=== PATIENT | female | born 2000 | race American Indian/Alaskan Native ===

== ENCOUNTER 2021-05-27 15:56 | Emergency (ER) | payer MEDICAID ==
[2021-05-27 16:05] VITALS: BP 128/68
[2021-05-27] MEDS ORDERED: ACETAMINOPHEN 500 MG TAB PO ONE (22:48)
[2021-05-27] MEDS ORDERED: IBUPROFEN 600 MG TAB PO ONE (22:48)
[2021-05-27 23:22] LABS: Basophils # (Auto) 0.1 K/mm3 (0.0-0.1); Eosinophils # (Auto) 0.2 K/mm3 (0.0-0.4); Eosinophils % (Auto) 1.8 % (0.0-4.3); Monocytes # (Auto) 0.7 K/mm3 (0.0-0.8); Monocytes % (Auto) 6.9 % (0.0-7.3)
[2021-05-27 23:45] LABS: Alanine Aminotransferase 15 units/L (7-56); Albumin 4.2 g/dL (3.9-5); Blood Urea Nitrogen 9 mg/dL (7-17); Calcium 9.7 mg/dL (8.4-10.2); Hemolysis Index 2
[2021-05-27 23:52] LABS: BUN/Creatinine Ratio 15
[2021-05-28 00:05] LABS: Basophils % (Auto) 0.3 % (0.0-1.8); Hematocrit 33.3 % (30.3-42.9); Hemoglobin 10.3 gm/dl (10.1-14.3); Lymphocytes # (Auto) 2.4 K/mm3 (1.2-5.4); Lymphocytes % (Auto) 25.5 % (13.4-35.0); Mean Corpuscular HGB Conc 31 % (30-34); Mean Corpuscular Volume 70 fl (79-97); Platelet Count 431 K/mm3 (140-440); Red Blood Count 4.73 M/mm3 (3.65-5.03)
[2021-05-28 00:06] LABS: Red Cell Distribution Width 20.9 % (13.2-15.2)
[2021-05-28 01:32] LABS: Bilirubin,Urine NEG (Negative); Blood,Urine LG (Negative); Color,Urine Yellow (Yellow); Mucus,Urine 1+ /HPF
--- NOTE | 2021-05-28 01:43 | Emergency Department Report ---
ED Female HPI - General Chief complaint: Vaginal Bleeding Stated complaint: ABD PAIN/ABNORMAL CYCLE Source: patient, EMS Mode of arrival: Stretcher Limitations: No Limitations - History of Present Illness Initial comments: Patient is a nulliparous 20-year-old -[place] female with a history of morbid obesity presents to the ED with persistent heavy vaginal bleeding for the last 2 weeks after finishing her menstrual cycle. Patient also complains of severe pelvic pain intermittently for the last 7 days. Patient denies dysuria, urinary frequency and urgency, chest pain, shortness of breath, fever, chills, cough, sore throat, nausea and vomiting or diarrhea or dyspareunia. MD Complaint: vaginal bleeding, pelvic pain -: Sudden, week(s) (1) Location: suprapubic, other Radiation: non-radiating (Vaginal) Severity: severe Severity scale (0 -10): 8 Quality: cramping, sharp, aching Consistency: constant Improves with: none Worsens with: menstrual period Are you Now?: No Last Menstrual Period: 05/21/21 EDC: 02/25/22 Associated Symptoms: denies other symptoms, vaginal bleeding. denies: abdominal pain, nausea/vomiting, fever/chills, headaches, loss of appetite, hematuria, seizure, shortness of breath, syncope, weakness - Related Data Sexually active: No : 0 Para: 0 A: 0 Previous Rx's Medication Instructions Recorded Last Taken Type Ibuprofen [Motrin 800 MG tab] 800 mg PO Q8HR PRN #30 tablet 05/28/21 Unknown Rx medroxyPROGESTERone ACETATE 10 mg PO QDAY #10 tab 05/28/21 Unknown Rx [Provera] Allergies Allergy/AdvReac Type Severity Reaction Status Date / Time No Known Allergies Allergy Verified 05/27/21 23:04 ED Review of Systems ROS: Stated complaint: ABD PAIN/ABNORMAL CYCLE Other details as noted in HPI Constitutional: denies: chills, fever Eyes: denies: eye pain, eye discharge, vision change ENT: denies: ear pain, throat pain Respiratory: denies: cough, shortness of breath, wheezing Cardiovascular: denies: chest pain, palpitations Endocrine: no symptoms reported Gastrointestinal: abdominal pain (Suprapubic pain). denies: nausea, vomiting, diarrhea Genitourinary: abnormal menses (Heavy vaginal bleeding). denies: urgency, dysuria, frequency, hematuria, discharge, dyspareunia Musculoskeletal: denies: back pain, joint swelling, arthralgia Skin: denies: rash, lesions Neurological: denies: headache, weakness, paresthesias Psychiatric: denies: anxiety, depression Hematological/Lymphatic: denies: easy bleeding, easy bruising ED Past Medical Hx - Medications Home Medications: Home Medications Medication Instructions Recorded Confirmed Last Taken Type Ibuprofen [Motrin 800 MG tab] 800 mg PO Q8HR PRN #30 tablet 05/28/21 Unknown Rx medroxyPROGESTERone ACETATE 10 mg PO QDAY #10 tab 05/28/21 Unknown Rx [Provera] ED Physical Exam - General Limitations: No Limitations General appearance: alert, in no apparent distress, obese - Head Head exam: Present: atraumatic, normocephalic, normal inspection - Eye Eye exam: Present: normal appearance, PERRL, EOMI Pupils: Present: normal accommodation - ENT ENT exam: Present: normal exam, normal orophraynx, mucous membranes moist, TM's normal bilaterally, normal external ear exam - Neck Neck exam: Present: normal inspection, full ROM - Respiratory Respiratory exam: Present: normal lung sounds bilaterally. Absent: respiratory distress, wheezes, rales, rhonchi, chest wall tenderness, accessory muscle use, decreased breath sounds, prolonged expiratory - Cardiovascular Cardiovascular Exam: Present: regular rate, normal rhythm, normal heart sounds. Absent: systolic murmur, diastolic murmur, rubs, gallop - GI/Abdominal GI/Abdominal exam: Present: soft, normal bowel sounds. Absent: tenderness, guarding, rebound, hyperactive bowel sounds, hypoactive bowel sounds, organomegaly - Bi-manual exam: Present: other (Pelvic exam deferred at this time) - Extremities Exam Extremities exam: Present: normal inspection, full ROM, normal capillary refill - Back Exam Back exam: Present: normal inspection, full ROM. Absent: tenderness, CVA tenderness (R), CVA tenderness (L), muscle spasm, paraspinal tenderness - Neurological Exam Neurological exam: Present: alert, oriented X3, CN II-XII intact, normal gait, reflexes normal - Psychiatric Psychiatric exam: Present: normal affect, normal mood - Skin Skin exam: Present: warm, dry, intact, normal color. Absent: rash ED Course Vital Signs 05/27/21 05/27/21 16:03 22:58 Temperature 98.3 F Pulse Rate 84 Respiratory 16 14 Rate Blood Pressure 128/68 [Left] O2 Sat by Pulse 99 Oximetry ED Medical Decision Making - Lab Data Result diagrams: 05/27/21 23:04 05/27/21 23:04 - Medical Decision Making This is a nulliparous 20-year-old -[place] female with a history of morbid obesity presents to the ED with persistent heavy vaginal bleeding for the last 2 weeks after finishing her menstrual cycle. Patient also complains of severe pelvic pain intermittently for the last 7 days. In the ED, patient is alert and oriented x3 and is not in any distress. Lab test results were reviewed and are all nonactionable. Patient was treated for pain in the ED and was discharged home on medications. Patient was advised to follow-up with her [facility] physician in 7 to 10 days for reevaluation or return to the ED immediately if symptoms get worse. - Differential Diagnosis Dysfunctional uterine bleeding; UTI; ovarian cyst; ; miscarriage; Critical care attestation.: If time is entered above; I have spent that time in minutes in the direct care of this critically ill patient, excluding procedure time. ED Disposition Clinical Impression: Dysfunctional uterine bleeding, Menometrorrhagia, Dysmenorrhea Disposition: 01 HOME / SELF CARE / HOMELESS Is pt being admited?: No Does the pt Need Aspirin: No Condition: Stable Instructions: Metrorrhagia, [id number], Abnormal Uterine Bleeding, Easy-to-Re ad, Dysmenorrhea, [id number] Additional Instructions: All lab test results were reviewed and are all nonactionable. Therefore take medication with food, drink plenty of fluids and follow-up with your [facility] physician in 7 to 10 days for reevaluation or return to the ED immediately if symptoms get worse. Prescriptions: Ibuprofen [Motrin 800 MG tab] 800 mg PO Q8HR PRN #30 tablet PRN Reason: Pain , Severe (7-10) medroxyPROGESTERone ACETATE [Provera] 10 mg PO QDAY #10 tab Referrals: ORESTES GARCIA MD [Primary Care Provider] - 3-5 Days Time of Disposition: 01:41 Print Language: MEXICAN
[2021-05-28] MEDS ORDERED: medroxyPROGESTERone ACETATE 5 MG TAB PO SCH (10:00)
== END 2021-05-28 03:10 | disposition home or self-care (01) ==
LOC: ED 15:56
DX: N92.1 Excessive and frequent menstruation with irregular cycle (principal); N94.6 Dysmenorrhea, unspecified
CPT/HCPCS: 36415; 80053; 81001; 84703; 85025; 99284